=== PATIENT | male | born 1995 | race Caucasian/White ===

== ENCOUNTER 2016-05-25 03:03 | Emergency (ER) | payer OTHER ==
[2016-05-25] MEDS ORDERED: Ondansetron ODT TAB* 4 MG PO ONE (05:15)
[2016-05-25 06:10] VITALS: BP 138/87
--- NOTE | 2016-05-25 07:55 | RAD ---
HISTORY: Head injury COMPARISONS: None TECHNIQUE: Multiple contiguous axial CT scans were obtained of the head without intravenous contrast. FINDINGS: HEMORRHAGE/INFARCT: There is no hemorrhage or acute infarct. MASSES/SHIFT: There is no mass or shift. EXTRA-AXIAL SPACES: There are no extra-axial fluid collections. SULCI AND VENTRICLES: The sulci and ventricles are normal in size and position for the patient's stated age. CEREBRUM: There are no focal parenchymal abnormalities. BRAINSTEM: There are no focal parenchymal abnormalities. CEREBELLUM: There are no focal parenchymal abnormalities. VESSELS: The vessels are grossly normal. PARANASAL SINUSES: The paranasal sinuses are clear. ORBITS: The orbits are unremarkable. BONES AND SOFT TISSUE: No bone or soft tissue abnormalities are noted. OTHER: None IMPRESSION: NO ACUTE INTRACRANIAL PATHOLOGY.
--- NOTE | 2016-05-25 21:03 | ED ---
Chris Moreno Billy, scribed for Carmelo Perez MD on 05/25/16 at 0523 . Head Injury - HPI Summary HPI Summary: Patient is a 20 year-old male coming to [facility] for evaluation of head injury. He states that yesterday at 0900, he hit his head while playing basketball. Half an hour afterwards, he had an episode of emesis. Later on in the day, he had a headache when trying to focus in class. He then went home to rest. That evening , he tripped in his room and hit the right side of his head on a desk. There was brief LOC lasting several seconds. Now he feels nauseated. - History Of Current Complaint Chief Complaint: EDHeadache Stated Complaint: HEAD INJURY/BLURRED VISION/VOMITING Time Seen by Provider: 05/25/16 03:58 Hx Obtained From: Patient Mechanism Of Injury: Fall From A Standing Position Onset/Duration: Started Hours Ago Onset of Pain: Immediate Severity Currently: Moderate Severity Initially: Moderate Pain Intensity: 8 Pain Scale Used: 0-10 Numeric Location of Head Injury: Parietal, Occipital Associated Signs And Symptoms: LOC (Time In Secs./Mins/Hrs) - seconds, Nausea, Headache - Allergies/Home Medications Allergies/Adverse Reactions: Allergies Allergy/AdvReac Type Severity Reaction Status Date / Time No Known Allergies Allergy Verified 05/25/16 03:16 PMH/Surg Hx/FS Hx/Imm Hx Endocrine/Hematology History: Denies: Hx Diabetes Respiratory History: Denies: Hx Asthma Infectious Disease History: No Infectious Disease History: Reports: Traveled Outside the in Last 30 Days - [facility] 3 days ago - Family History Known Family History: Negative: Cardiac Disease, Hypertension, Diabetes - Social History Alcohol Use: Occasionally Substance Use Type: Reports: None Smoking Status (MU): Never Smoked Tobacco Review of Systems Negative: Fever, Chills Negative: Erythema Negative: Sore Throat Negative: Chest Pain Negative: Shortness Of Breath, Cough Positive: Vomiting, Nausea. Negative: Abdominal Pain Negative: Myalgia, Edema Positive: Headache All Other Systems Reviewed And Are Negative: Yes Physical Exam - Summary Physical Exam Summary: Constitutional: Well-developed, Well-nourished, Alert. (-) Distressed Skin: Warm, Dry HENT: Normocephalic; Atraumatic Eyes: Conjunctiva normal. End gaze nystagmus. Neck: Musculoskeletal ROM normal neck. (-) JVD, (-) Stridor, (-) Tracheal deviation Cardio: Rhythm regular, rate normal, Heart sounds normal; Intact distal pulses; The pedal pulses are 2+ and symmetric. Radial pulses are 2+ and symmetric. (-) Murmur Pulmonary/Chest wall: Effort normal. (-) Respiratory distress, (-) Wheezes, (-) Rales Abd: Soft, (-) Tenderness, (-) Distension, (-) Guarding, (-) Rebound Musculoskeletal: (-) Edema Lymph: (-) Cervical adenopathy Neuro: Alert, Oriented x3 Psych: Mood and affect Normal Triage Information Reviewed: Yes Vital Signs On Initial Exam: Initial Vitals Temp Pulse Resp BP Pulse Ox 97.9 F 78 14 142/84 99 05/25/16 03:12 05/25/16 03:12 05/25/16 03:12 05/25/16 03:12 05/25/16 03:12 Vital Signs Reviewed: Yes Diagnostics - Vital Signs Vital Signs Temp Pulse Resp BP Pulse Ox 05/25/16 03:15 97.9 F 78 14 142/84 100 05/25/16 03:12 97.9 F 78 14 142/84 99 - Laboratory Lab Statement: Any lab studies that have been ordered have been reviewed, and results considered in the medical decision making process. - CT brain CT Interpretation: No Acute Changes CT Interpretation Completed By: Radiologist Head Injury Course/Dx Assessment/Plan: 20 y/o male to the ED for evaluation of head injury. CT brain showed no acute findings. He was given Zofran in the ED. He will be discharged with Zofran to follow up with Jorge. - Diagnoses Provider Diagnoses: Concussion Discharge - Discharge Plan Condition: Stable Disposition: HOME Prescriptions: Ondansetron ODT TAB* [Zofran 4 MG Odt TAB*] 4 mg PO Q8H PRN #15 tab.odt PRN Reason: Nausea/Vomiting Patient Education Materials: Concussion (ED), Head Injury (ED) Forms: *Physical Education Release, *School Release Referrals: [facility] JORGE Franco [Primary Care Provider] - Additional Instructions: FOLLOW UP WITH JORGE ON Monday05/27/16. TAKE MEDICATIONS PRESCRIBED. The documentation as recorded by the Chris martins Billy accurately reflects the service I personally performed and the decisions made by me, Carmelo Perez MD.
== END 2016-05-25 05:50 | disposition home or self-care (01) ==
LOC: ED 03:03
DX: S06.0X9A Concussion with loss of consciousness of unspecified duration, initial encounter (principal); S09.90XA Unspecified injury of head, initial encounter; R11.2 Nausea with vomiting, unspecified; R51 Headache; W22.8XXA Striking against or struck by other objects, initial encounter; Y93.67 Activity, basketball; Y92.9 Unspecified place or not applicable
CPT/HCPCS: 70450; 99283